=== PATIENT | male | born 1940 | race Caucasian/White ===

== ENCOUNTER 2019-11-16 02:41 | Inpatient (IN) ==
[2019-11-16] MEDS ORDERED: ONDANSETRON 4 MG/2 ML VIAL IV PRN (06:02)
[2019-11-16 06:30] LABS: Basophils # 0.1 10*3/uL (0.0-0.2); Basophils % 0.3 % (0.0-0.8); Eosinophils # 0.2 10*3/uL (0.0-0.87); Eosinophils % 1.2 % (0.00-10.9); Hematocrit 40.2 VOL% (42.0-52.0); Hemoglobin 13.2 GM/DL (14.0-18.0); Immature Granulocytes % 0.6 %; Immature Granulocytes Absolute 0.09 #; Lymphocytes # 2.3 10*3/uL (1.4-4.0); Lymphocytes % 15.9 % (21.2-54.2); Mean Corpuscular HGB Conc 32.8 GM/DL (32-36); Mean Corpuscular Volume 92.6 FL (87-102); Mean Platelet Volume 10.1 FL (9.6-12.0); Monocytes % 8.2 % (1.7-12.7); Neutrophils % 73.8 % (38.7-73.9); Platelet Count 241 T/CUMM (130-400); Red Blood Count 4.34 MC/CUMM (3.8-5.5); Red Cell Distribution Width 14.4 % (9.3-17.3); White Blood Count 14.4 T/CUMM (4-12)
[2019-11-16] MEDS ORDERED: ENOXAPARIN 40 MG/0.4 ML SYRINGE SUBCUT SCH (06:30)
[2019-11-16] MEDS ORDERED: WARFARIN 2.5 MG TABLET PO SCH (06:30)
[2019-11-16 06:51] LABS: INR 2.2; Partial Thromboplastin Time 32.3 SECS (20.8-36.0)
[2019-11-16 06:56] LABS: Albumin 3.6 G/DL (3.4-5.0); Bilirubin,Total 1.1 MG/DL (0.2-1.0); Calcium 9.2 MG/DL (8.5-10.1); Osmolality,Calculated 281.2 MOS/KG (273-304); PT Patient Result 23.4 SECS (9.6-12.2); Risk Ratio 3.47; Thyroid Stimulating Hormone 0.938 uIU/ml (0.358-3.74); Total Protein 7.8 G/DL (6.4-8.3); VLDL CHOLESTEROL 22.8 MG/DL
[2019-11-16] MEDS ORDERED: FUROSEMIDE 40 MG/4 ML VIAL IV SCH (08:00)
[2019-11-16] MEDS ORDERED: ENOXAPARIN 80 MG/0.8 ML SYRINGE SUBCUT SCH (08:00)
[2019-11-16] MEDS ORDERED: DIGOXIN 0.125 MG TABLET PO SCH (09:00)
[2019-11-16] MEDS: POTASSIUM CHLORIDE 20 MEQ TABLET PO PRN ×3 (09:02→17:52)
[2019-11-16] MEDS: PANTOPRAZOLE 40 MG TABLET PO SCH (09:03)
[2019-11-16] MEDS: carvediloL 12.5 MG TABLET PO SCH ×2 (09:03→18:01)
[2019-11-16] MEDS: POTASSIUM CHLORIDE 10 MEQ TABLET PO SCH ×2 (09:03→20:44)
[2019-11-16] MEDS: allopurinoL 300 MG TABLET PO SCH (09:03)
[2019-11-16] MEDS: ASPIRIN EC 81 MG TABLET PO SCH (09:03)
[2019-11-16] MEDS ORDERED: MAGNESIUM SULF RIDER 2 GM in PREMIX 1 EACH IV PRN (11:17)
[2019-11-16] MEDS ORDERED: MAGNESIUM SULF RIDER 4 GM in PREMIX 1 EACH IV PRN (11:17)
[2019-11-16 14:14] LABS: Calcium 9.5 MG/DL (8.5-10.1); Osmolality,Calculated 277.8 MOS/KG (273-304)
[2019-11-16] MEDS: INSULIN GLARGINE 100 UNIT/ML SUBCUT SCH (20:43)
[2019-11-16] MEDS: GABAPENTIN 300 MG CAPSULE PO SCH (20:44)
[2019-11-16] MEDS ORDERED: ATORVASTATIN 20 MG TABLET PO SCH (21:00)
[2019-11-16] MEDS: ACETAMINOPHEN 325 MG TABLET PO PRN (22:30)
[2019-11-17 05:52] LABS: Basophils # 0.1 10*3/uL (0.0-0.2); Basophils % 0.6 % (0.0-0.8); Eosinophils # 0.4 10*3/uL (0.0-0.87); Eosinophils % 3.4 % (0.00-10.9); Hematocrit 36.1 VOL% (42.0-52.0); Hemoglobin 11.7 GM/DL (14.0-18.0); Immature Granulocytes % 0.5 %; Immature Granulocytes Absolute 0.06 #; Lymphocytes # 3.7 10*3/uL (1.4-4.0); Mean Corpuscular HGB Conc 32.4 GM/DL (32-36); Mean Corpuscular Volume 93.8 FL (87-102); Mean Platelet Volume 10.3 FL (9.6-12.0); Monocytes % 10.1 % (1.7-12.7); Neutrophils % 53.4 % (38.7-73.9); Platelet Count 220 T/CUMM (130-400); Red Blood Count 3.85 MC/CUMM (3.8-5.5); Red Cell Distribution Width 14.3 % (9.3-17.3); White Blood Count 11.5 T/CUMM (4-12)
[2019-11-17 06:01] LABS: INR 1.7; PT Patient Result 18.9 SECS (9.6-12.2)
[2019-11-17 06:17] LABS: Calcium 9.4 MG/DL (8.5-10.1); Osmolality,Calculated 278.2 MOS/KG (273-304)
[2019-11-17] MEDS: POTASSIUM CHLORIDE 10 MEQ TABLET PO SCH ×2 (09:14→21:21)
[2019-11-17] MEDS: allopurinoL 300 MG TABLET PO SCH (09:15)
[2019-11-17] MEDS: ASPIRIN EC 81 MG TABLET PO SCH (09:15)
[2019-11-17] MEDS: carvediloL 12.5 MG TABLET PO SCH ×2 (09:15→18:30)
[2019-11-17] MEDS: POTASSIUM CHLORIDE 20 MEQ TABLET PO PRN ×3 (09:15→13:21)
[2019-11-17] MEDS: PANTOPRAZOLE 40 MG TABLET PO SCH (09:15)
[2019-11-17] MEDS: GABAPENTIN 300 MG CAPSULE PO SCH (21:21)
[2019-11-17] MEDS: INSULIN GLARGINE 100 UNIT/ML SUBCUT SCH (21:25)
[2019-11-18 04:51] LABS: Basophils # 0.1 10*3/uL (0.0-0.2); Basophils % 0.7 % (0.0-0.8); Eosinophils # 0.6 10*3/uL (0.0-0.87); Eosinophils % 4.3 % (0.00-10.9); Hematocrit 36.6 VOL% (42.0-52.0); Hemoglobin 12.2 GM/DL (14.0-18.0); Immature Granulocytes % 0.5 %; Immature Granulocytes Absolute 0.07 #; Lymphocytes # 3.4 10*3/uL (1.4-4.0); Lymphocytes % 26.4 % (21.2-54.2); Mean Corpuscular HGB Conc 33.3 GM/DL (32-36); Mean Corpuscular Volume 92.2 FL (87-102); Mean Platelet Volume 10.6 FL (9.6-12.0); Monocytes % 8.3 % (1.7-12.7); Neutrophils % 59.8 % (38.7-73.9); Platelet Count 236 T/CUMM (130-400); Red Blood Count 3.97 MC/CUMM (3.8-5.5); Red Cell Distribution Width 14.2 % (9.3-17.3); White Blood Count 12.8 T/CUMM (4-12)
[2019-11-18 04:58] LABS: INR 1.4; PT Patient Result 15.4 SECS (9.6-12.2)
[2019-11-18 05:12] LABS: Calcium 9.6 MG/DL (8.5-10.1); Osmolality,Calculated 270.1 MOS/KG (273-304)
[2019-11-18] MEDS: ASPIRIN EC 81 MG TABLET PO SCH (09:16)
[2019-11-18] MEDS: carvediloL 12.5 MG TABLET PO SCH ×2 (09:16→17:09)
[2019-11-18] MEDS: allopurinoL 300 MG TABLET PO SCH (09:17)
[2019-11-18] MEDS: POTASSIUM CHLORIDE 10 MEQ TABLET PO SCH ×2 (09:17→21:10)
[2019-11-18] MEDS: PANTOPRAZOLE 40 MG TABLET PO SCH (09:17)
[2019-11-18 10:54] LABS: Cyclic Citrull Peptide Interp Negative
[2019-11-18] MEDS ORDERED: BISACODYL 5 MG TABLET PO ONE (14:57)
[2019-11-18] MEDS: predniSONE 10 MG TABLET PO SCH (21:10)
[2019-11-18] MEDS: GABAPENTIN 300 MG CAPSULE PO SCH (21:10)
[2019-11-18] MEDS: INSULIN GLARGINE 100 UNIT/ML SUBCUT SCH (21:10)
[2019-11-19 04:52] LABS: Basophils # 0.1 10*3/uL (0.0-0.2); Basophils % 0.5 % (0.0-0.8); Eosinophils # 0.6 10*3/uL (0.0-0.87); Eosinophils % 3.9 % (0.00-10.9); Hematocrit 34.3 VOL% (42.0-52.0); Hemoglobin 11.3 GM/DL (14.0-18.0); Immature Granulocytes % 0.6 %; Immature Granulocytes Absolute 0.08 #; Lymphocytes % 13.9 % (21.2-54.2); Mean Corpuscular HGB Conc 32.9 GM/DL (32-36); Mean Corpuscular Volume 92.7 FL (87-102); Mean Platelet Volume 10.6 FL (9.6-12.0); Monocytes % 7.3 % (1.7-12.7); Neutrophils % 73.8 % (38.7-73.9); Platelet Count 207 T/CUMM (130-400); Red Cell Distribution Width 14.1 % (9.3-17.3); White Blood Count 14.3 T/CUMM (4-12)
[2019-11-19 05:34] LABS: Calcium 9.5 MG/DL (8.5-10.1); Osmolality,Calculated 272.4 MOS/KG (273-304)
[2019-11-19] MEDS: allopurinoL 300 MG TABLET PO SCH (09:40)
[2019-11-19] MEDS: carvediloL 12.5 MG TABLET PO SCH ×2 (09:40→16:59)
[2019-11-19] MEDS: ASPIRIN EC 81 MG TABLET PO SCH (09:40)
[2019-11-19] MEDS: POTASSIUM CHLORIDE 10 MEQ TABLET PO SCH ×2 (09:40→21:30)
[2019-11-19] MEDS: predniSONE 10 MG TABLET PO SCH ×2 (09:40→21:29)
[2019-11-19] MEDS: PANTOPRAZOLE 40 MG TABLET PO SCH (09:40)
[2019-11-19] MEDS: INSULIN GLARGINE 100 UNIT/ML SUBCUT SCH (21:30)
[2019-11-19] MEDS: GABAPENTIN 300 MG CAPSULE PO SCH (21:30)
[2019-11-20] MEDS: ACETAMINOPHEN 325 MG TABLET PO PRN ×2 (00:25→08:28)
[2019-11-20 06:08] LABS: Basophils % 0.2 % (0.0-0.8); Eosinophils # 0.1 10*3/uL (0.0-0.87); Eosinophils % 0.9 % (0.00-10.9); Hematocrit 34.9 VOL% (42.0-52.0); Hemoglobin 11.7 GM/DL (14.0-18.0); Immature Granulocytes % 0.6 %; Immature Granulocytes Absolute 0.08 #; Lymphocytes # 1.2 10*3/uL (1.4-4.0); Lymphocytes % 9.5 % (21.2-54.2); Mean Corpuscular HGB Conc 33.5 GM/DL (32-36); Mean Corpuscular Volume 92.3 FL (87-102); Mean Platelet Volume 10.6 FL (9.6-12.0); Monocytes % 6.5 % (1.7-12.7); Neutrophils % 82.3 % (38.7-73.9); Platelet Count 198 T/CUMM (130-400); Red Blood Count 3.78 MC/CUMM (3.8-5.5); Red Cell Distribution Width 14.1 % (9.3-17.3); White Blood Count 12.8 T/CUMM (4-12)
[2019-11-20 06:25] LABS: Calcium 9.8 MG/DL (8.5-10.1); Osmolality,Calculated 276.2 MOS/KG (273-304)
[2019-11-20] MEDS: allopurinoL 300 MG TABLET PO SCH (08:28)
[2019-11-20] MEDS: ASPIRIN EC 81 MG TABLET PO SCH (08:28)
[2019-11-20] MEDS: predniSONE 10 MG TABLET PO SCH (08:28)
[2019-11-20] MEDS: POTASSIUM CHLORIDE 10 MEQ TABLET PO SCH (08:29)
[2019-11-20] MEDS: carvediloL 12.5 MG TABLET PO SCH (08:29)
[2019-11-20] MEDS: PANTOPRAZOLE 40 MG TABLET PO SCH (08:29)
[2019-11-20] MEDS ORDERED: INSULIN REGULAR 100 UNIT/ML SUBCUT SCH (11:30)
[2019-11-20 12:40] VITALS: BP 142/50
[2019-11-20 13:00] LABS: Anti SS-A Antibodies < 16 EU/ML
[2019-11-20] MEDS ORDERED: WARFARIN 5 MG TABLET PO ONE (14:22)
== END 2019-11-20 14:41 | disposition home health service (06) | DRG 313 ==
LOC: N.TELEN 04:00 → SUATTDRO 04:00
PROVIDERS: ADMIT Internal Medicine; ATTEND Internal Medicine